=== PATIENT | male | born 1995 | race Caucasian/White ===

== ENCOUNTER → 2018-09-12 16:09 | Emergency (ER) | payer OTHER ==
[~2018-09-12 16:09] MED LIST: oxyCODONE/Acetamin 5/325 MG* TAB PO ONE
--- NOTE | 2018-09-12 16:20 | ED ---
Lower Extremity - HPI Summary HPI Summary: The patient is a 23 y/o M arriving by ambulance to [facility] with a chief complaint of throbbing pain in the right ankle and foot s/p crushing the ankle [employer]. 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 He states he is in a lot of pain, rated 9/10 in severity. There is significant swelling in the right foot. There are no alleviating factors, but movement of the foot worsens the pain. No previous hx. Heavy every day smoker, no EtOH, marijuana use. - History of Current Complaint Chief Complaint: EDExtremityLower Stated Complaint: RT FOOT INJURY PER EMS Time Seen by Provider: 09/12/18 16:13 Hx Obtained From: Patient Mechanism Of Injury: Blunt Trauma - foot stuck and crushed by skid steer machine Onset of Pain: Immediate, Post Accident Onset/Duration: Still Present Severity Initially: Severe Severity Currently: Severe Pain Intensity: 9 Pain Scale Used: 0-10 Numeric Timing: Lasting Minutes Location: Is Discrete @ - right foot and ankle Character Of Pain: Throbbing Associated Signs And Symptoms: Positive: Swelling Aggravating Factor(s): Movement Alleviating Factor(s): Nothing - Allergies/Home Medications Allergies/Adverse Reactions: Allergies Allergy/AdvReac Type Severity Reaction Status Date / Time No Known Allergies Allergy Verified 09/12/18 16:12 PMH/Surg Hx/FS Hx/Imm Hx Respiratory History: Denies: Hx Asthma Sensory History: Denies: Hx Deafness Opthamlomology History: Denies: Hx Legally Blind EENT History: Denies: Hx Deafness - Surgical History Surgical History: None Surgery Procedure, Year, and Place: none Infectious Disease History: No Infectious Disease History: Denies: Traveled Outside the [place] in Last 30 Days - Family History Known Family History: Negative: Hypertension, Diabetes - Social History Alcohol Use: None Substance Use Type: Reports: Marijuana Hx Tobacco Use: Yes Smoking Status (MU): Heavy Every Day Tobacco Smoker Review of Systems Positive: Other - pain in the right foot and ankle Positive: Other - swelling in the right foot and ankle All Other Systems Reviewed And Are Negative: Yes Physical Exam - Summary Physical Exam Summary: Appearance: Well-appearing, Well-nourished, lying in bed comfortable Skin: Warm, dry, no obvious rash Eyes: sclera anicteric, no conjunctival pallor ENT: mucous membranes moist Neck: deferred Respiratory: No signs of respiratory distress Cardiovascular: Appears well perfused, pulses are nml Abdomen: deferred Musculoskeletal: Right ankle and foot are swollen and erythematous and tender in an area involving dorsal foot and medical malleolus, Some superficial abrasions on the lateral side of the foot but no other wounds, Leg proximal to injury is normal appearing, Effusion to the distal foot appears good Neurological: Awake and alert, mentation is normal, speech is fluent and appropriate Psychiatric: affect is normal, does not appear anxious or depressed Triage Information Reviewed: Yes Vital Signs On Initial Exam: Initial Vitals Temp Pulse Resp BP Pulse Ox 98.6 F 65 16 125/83 99 09/12/18 16:10 09/12/18 16:10 09/12/18 16:10 09/12/18 16:10 09/12/18 16:10 Vital Signs Reviewed: Yes Procedures - Splinting Right Lower Extremity Location: right foot and ankle Hand-Made Type: OCL material Splint: posterior walking Pre-Proc Neuro Vasc Exam: normal Post-Proc Neuro Vasc Exam: normal Diagnostics - Vital Signs Vital Signs Temp Pulse Resp BP Pulse Ox 09/12/18 16:10 98.6 F 65 16 125/83 99 - Laboratory Result Diagrams: 09/12/18 16:41 09/12/18 16:41 Lab Statement: Any lab studies that have been ordered have been reviewed, and results considered in the medical decision making process. - Radiology R Ankle XR Radiology Interpretation Completed By: Radiologist Summary of Radiographic Findings: 1. There are 2 curvilinear fracture fragments present between the talus and navicular bones. 2. Fracture at the base of the first metatarsal. 3. Consider CT imaging of the ankle and foot for further evaluation. R Foot XR Radiology Interpretation Completed By: Radiologist Summary of Radiographic Findings: 1. Obliquely origin fracture through the proximal shaft of the fourth metatarsal with suspected intra-articular TMT extent. 2. Radiopaque material seen in the posterior soft tissues of the distal calf. Re-Evaluation - Re-Evaluation First Eval Re-Evaluation Time: 17:00 Comment: I placed a splint on the patient's right ankle and foot. We discussed findings and discharge home. Lower Extremity Course/Dx - Course Course Of Treatment: The patient is a 23 y/o M arriving by ambulance to [facility] with a chief complaint of pain in the right ankle and foot s/p crushing the ankle in the boom of a skid steer machine [employer]. Upon physical exam, the patient exhibits swelling, erythema, and tenderness in the right ankle and foot in an area involving dorsal foot and medical malleolus, some superficial abrasions on the lateral side of the foot but no other wounds, leg proximal to injury is normal appearing with good effusion to the distal foot. R Ankle XR Impression: 1. There are 2 curvilinear fracture fragments present between the talus and navicular bones. 2. Fracture at the base of the first metatarsal. 3. Consider CT imaging of the ankle and foot for further evaluation. R Foot XR Impression: 1. Obliquely origin fracture through the proximal shaft of the fourth metatarsal with suspected intra-articular TMT extent. 2. Radiopaque material seen in the posterior soft tissues of the distal calf. I placed the patient's right foot and ankle in a posterior short leg splint with OCL material. He will be discharged home with dx of fracture of fourth metatarsal bone of right foot and rx for Percocet. He agrees with discharge plan to follow up with orthopedics. - Diagnoses Provider Diagnoses: Fracture of fourth metatarsal bone of right foot Discharge - Sign-Out/Discharge Documenting (check all that apply): Patient Departure - Patient will be dishcarged home. Patient Received Moderate/Deep Sedation with Procedure: No - Discharge Plan Condition: Good Disposition: HOME Prescriptions: oxyCODONE/Acetamin 5/325 MG* [Percocet 5/325 TAB*] 1 tab PO Q4H PRN #15 tab MDD 4 PRN Reason: Pain - Severe Patient Education Materials: Foot Fracture in Adults (ED) Referrals: Derrek Carrasco MD [Medical Doctor] - 2 Days Additional Instructions: Follow up with orthopedics in 2-3 days. Return to the emergency department for any new or worsening symptoms. - Billing Disposition and Condition Condition: GOOD Disposition: Home - Attestation Statements Document Initiated by Scribe: Yes Documenting Scribe: Zoe Anne Provider For Whom Scribe is Documenting (Include Credential): Dr. Darin Blanco MD Scribe Attestation: Zoe Mcneill, scribed for Dr. Darin Blanco MD on 09/13/18 at 1231. Scribe Documentation Reviewed: Yes Provider Attestation: The documentation as recorded by the Zoe felix accurately reflects the service I personally performed and the decisions made by me, Dr. Darin Blanco MD Status of Scrlinda Document: Viewed
[2018-09-12 17:08] LABS: ABS Eosinophils 0.2 10^3/ul (0-0.6); ABS Monocytes 0.7 10^3/ul (0-0.8); ABS Neutrophils 8.8 10^3/ul (1.5-7.7); Eosinophil % 1.3 %; Hematocrit 42 % (42-52); Hemoglobin 14.6 g/dL (14.0-18.0); Lymphocyte % 17.3 %; Mean Corpuscular HGB Conc 35 g/dL (31-36); Mean Corpuscular Hemoglobin 33 pg (27-31); Mean Corpuscular Volume 95 fL (80-94); Mean Platelet Volume 6.9 fL (7.4-10.4); Platelet Count 303 10^3/uL (150-450); Red Blood Count 4.41 10^6 /uL (4.18-5.48); Red Cell Distribution Width 13 % (10-15); White Blood Count 11.6 10^3/uL (3.5-10.8)
[2018-09-12 17:23] VITALS: BP 127/75
[2018-09-12 17:28] LABS: BUN/Creatinine Ratio 20.2 (8-20); Calcium 10.2 mg/dL (8.6-10.3); EGFR African American 113.4 (>60); EGFR Non-African American 93.7 (>60); Potassium 4.1 mmol/L (3.5-5.0)
== END | disposition home or self-care (01) ==
LOC: ED 16:09
DX: S92.341A Displaced fracture of fourth metatarsal bone, right foot, initial encounter for closed fracture (principal); S92.101A Unspecified fracture of right talus, initial encounter for closed fracture; S92.251A Displaced fracture of navicular [scaphoid] of right foot, initial encounter for closed fracture; F17.210 Nicotine dependence, cigarettes, uncomplicated; W31.9XXA Contact with unspecified machinery, initial encounter; Y92.89 Other specified places as the place of occurrence of the external cause; Y99.0 Civilian activity done for income or pay
CPT/HCPCS: 36415; 80048; 82550; 85025; 99282; A9270-GY